=== PATIENT | female | born 1935 | race Caucasian/White ===

== ENCOUNTER 2017-04-27 17:35 | Inpatient (IN) | payer OTHER ==
[~2017-04-27] VITALS: Ht 160 cm; Wt 86.1 kg
[~2017-04-27 17:35] MED LIST: AMIODARONE HCL200 MG PO; ANTIFUNGAL15 G1 TP; BAYER CHEWABLE81 MG PO; CARDIZEM CD120 MG PO; CATAPRES0.2 MG PO; CEFTIN250 MG PO; CELEXA20 MG PO; CLONIDINE HCL0.1 MG PO; ELIQUIS2.5 MG PO; FUROSEMIDE40 MG PO; GLUCOTROL XL10 MG PO; HYDROCHLOROTHIA25 MG PO; K-DUR20 MEQ PO; LEVALBUTER1.25 MG/0. AEROSOL; LISINOPRIL40 MG PO; LISINOPRIL5 MG PO; LOPRESSOR50 MG PO; LOVASTATIN20 MG PO; METFORMIN HCL500 MG PO; METOPROLOL SUCC25 MG PO; NORVASC10 MG PO; NORVASC5 MG PO; OXYBUTYNIN CHLOR5 MG PO; PLAVIX75 MG PO; QUETIAPINE FUMA25 MG PO; VITAMIN D31000 UNIT PO; VITAMIN D32000 UNI1 PO
[2017-04-27 18:31] LABS: HEMATOCRIT 29.7 % (36.0-46.0); MCH 30.3 PG (29.0-34.0); MCV 89.2 FL (83-99); PLATELET COUNT 229 K/uL (156-360); RBC DIS.WIDTH-CV 13.8 % (11.8-14.6); RBC DIS.WIDTH-SD 45.2 % (39-53); RED BLOOD COUNT 3.33 M/uL (3.80-5.20); WHITE BLOOD COUNT 14.9 K/uL (4.1-10.2)
[2017-04-27 18:40] LABS: CHLORIDE 103 mEq/L (99-109); POTASSIUM 3.7 mEq/L (3.7-5.4); SODIUM 139 mEq/L (136-147)
[2017-04-27 18:42] LABS: GLUCOSE 212 mg/dL (70-99)
[2017-04-27 18:43] LABS: ANION GAP 13 MEQ/L (2-14)
[2017-04-27 18:46] LABS: GFR ESTIMATE (CALCULATED) 50 mL/min/
[2017-04-27 18:47] LABS: UREA NITROGEN (BUN) 13 mg/dL (9-23)
[2017-04-27 20:20] LABS: TROP-I INTERPRETATION POSITIVE; TROPONIN-I 1.72 ng/mL (0.0-0.30)
[2017-04-27 20:37] LABS: INFLUENZA A VIRAL ANTIGEN NEGATIVE; INFLUENZA B VIRAL ANTIGEN NEGATIVE
[2017-04-27] MEDS ORDERED: K-DUR10 MEQ PO (21:19)
[2017-04-27] MEDS ORDERED: CYANOCOBAL1000 MCG/2 IM (21:21)
[2017-04-27] MEDS ORDERED: AMOX TR-K CLV1 EAC4 PO (21:23)
[2017-04-27 22:13] LABS: ADD MIUA? YES; BILIRUBIN NEGATIVE; BLOOD SMALL; COLOR YELLOW ((YELLOW)); GLUCOSE (STRIP) NEGATIVE; KETONES NEGATIVE; LEUKOCYTES SMALL; NITRITE NEGATIVE; PROTEIN (STRIP) 30; SPECIFIC GRAVITY 1.012 (1.000-1.030); UROBILINOGEN 0.2 MG/DL (0.2-1.0)
[2017-04-27 22:30] LABS: BACTERIA RARE /HPF; CASTS PRESENT /LPF; CRYSTALS NONE SEEN; EPITHELIAL CELLS 1+ /HPF; FINE GRANULAR CASTS 0-5 /LPF; HYALINE CASTS 0-5 /LPF; MUCUS NONE SEEN /LPF; RED BLOOD CELLS 0-5 /HPF (0-5); UCUL ADDED? NO
[2017-04-28] VITALS (7 sets, daily range): BP systolic 126–191; BP diastolic 57–85
[2017-04-28 05:29] LABS: HEMATOCRIT 30.1 % (36.0-46.0); MCH 31.3 PG (29.0-34.0); MCHC 34.2 G/DL (30.0-36.0); MCV 91.5 FL (83-99); MEAN PLAT.VOLUME 10.2 uM^3 (9.5-12.4); PLATELET COUNT 180 K/uL (156-360); RBC DIS.WIDTH-SD 47.2 % (39-53); RED BLOOD COUNT 3.29 M/uL (3.80-5.20); WHITE BLOOD COUNT 10.7 K/uL (4.1-10.2)
[2017-04-28 05:57] LABS: ANION GAP 9 MEQ/L (2-14); CHLORIDE 103 MEQ/L (99-109); GFR ESTIMATE (CALCULATED) 50 mL/min/; GLUCOSE 150 mg/dL (70-99); POTASSIUM 3.5 MEQ/L (3.7-5.4); SAMPLE HEMOLYSIS CHECK 0; SAMPLE ICTERIC CHECK 0; SAMPLE LIPEMIA CHECK 0; SODIUM 140 MEQ/L (136-147); UREA NITROGEN (BUN) 16 mg/dL (9-23)
[2017-04-28 07:35] LABS: TROP-I INTERPRETATION POSITIVE
[2017-04-28 08:23] LABS: POINT-OF-CARE METER ID UU14174216; POINT-OF-CARE USER ID ENVKC36
[2017-04-28 11:46] LABS: POINT-OF-CARE METER ID UU13113698; POINT-OF-CARE USER ID ENVKC36
[2017-04-28 16:28] LABS: POINT-OF-CARE METER ID UU13113698; POINT-OF-CARE USER ID ENVKC36
[2017-04-29 00:08] LABS: TROP-I INTERPRETATION POSITIVE; TROPONIN-I 1.12 ng/mL (0.0-0.30)
[2017-04-29 03:50] VITALS: BP 129/56
[2017-04-29 08:35] VITALS: BP 123/73
[2017-04-29 12:30] VITALS: BP 143/64
[2017-04-29 12:50] VITALS: BP 129/85
[2017-04-29 18:00] VITALS: BP 170/86
[2017-04-29 19:38] VITALS: BP 139/80
[2017-04-29 20:59] LABS: POINT-OF-CARE METER ID UU13113698
[2017-04-30 00:24] VITALS: BP 111/58
[2017-04-30 04:12] VITALS: BP 146/82
[2017-04-30 08:33] LABS: POINT-OF-CARE METER ID UU13113781; POINT-OF-CARE USER ID NUTSLF44
[2017-04-30 09:00] VITALS: BP 185/85
[2017-04-30 11:56] LABS: POINT-OF-CARE METER ID UU13113781; POINT-OF-CARE USER ID NUTSLF44
[2017-04-30 12:00] VITALS: BP 128/78
[2017-04-30] MEDS ORDERED: DUONEB 2.5-0.5 M3 ML AEROSOL (15:47)
[2017-04-30] MEDS ORDERED: CEFDINIR300 MG PO (15:47)
[2017-04-30] MEDS ORDERED: ASPIR-LOW81 MG PO (15:48)
[2017-04-30 18:00] VITALS: BP 142/88
[2017-04-30 18:23] VITALS: BP 142/88
== END 2017-04-30 17:23 | DRG 280 ==
LOC: EME 17:35 → 4EAST 21:15 → EDOF 21:15 → 4EAST 23:18
PROVIDERS: Emergency Medicine; Hospitalist
DX: I21.4 Non-ST elevation (NSTEMI) myocardial infarction (principal); J18.9 Pneumonia, unspecified organism; I11.0 Hypertensive heart disease with heart failure; I50.23 Acute on chronic systolic (congestive) heart failure; N39.0 Urinary tract infection, site not specified; R09.02 Hypoxemia; I48.0 Paroxysmal atrial fibrillation; D64.9 Anemia, unspecified; I34.0 Nonrheumatic mitral (valve) insufficiency; I69.354 Hemiplegia and hemiparesis following cerebral infarction affecting left non-dominant side; I69.311 Memory deficit following cerebral infarction; F01.50 Vascular dementia, unspecified severity, without behavioral disturbance, psychotic disturbance, mood disturbance, and anxiety; I25.10 Atherosclerotic heart disease of native coronary artery without angina pectoris; E11.9 Type 2 diabetes mellitus without complications; I49.3 Ventricular premature depolarization; G43.909 Migraine, unspecified, not intractable, without status migrainosus; E78.5 Hyperlipidemia, unspecified; H35.30 Unspecified macular degeneration; K21.9 Gastro-esophageal reflux disease without esophagitis; F32.9 Major depressive disorder, single episode, unspecified; Z79.01 Long term (current) use of anticoagulants; Z79.84 Long term (current) use of oral hypoglycemic drugs
CPT/HCPCS: 71010; 71020; 80048; 81003; 82948; 83880; 84484; 85027; 87502; 93005; 93306; 94640; 94640 76; 94799; 99202; 99281; 99285; J0456; J0696; J1815; J1940; J7030; J7050